=== PATIENT | female | born 1960 | race Caucasian/White ===

== ENCOUNTER 2024-01-19 06:27 | Day surgery (SDC) | payer BC ==
[2024-01-09 16:27] LABS: Absolute Basophils 0.1 K/uL (0-0.5); Absolute Eosinophils 0.2 K/uL (0-0.5); Absolute Lymphocytes (CBC) 2.2 K/uL (0.7-4.9); Absolute Monocytes 0.7 K/uL (0.1-1.3); Absolute Neutrophil 4.4 K/uL (1.8-8.0); Basophils % 0.9 % (0-1.3); Eosinophils % 2.1 % (0-4.4); Hematocrit 39.3 % (36.0-45.0); Hemoglobin 13.4 g/dL (12.0-15.0); Lymphocytes % 28.8 % (15.3-44.8); MCH 29.5 pg (27.0-35.0); MCV 86.9 fL (80-100); MPV 8.1 fL (7.6-11.3); Monocytes % 9.6 % (3.3-12.3); Neutrophils % 58.6 % (41.7-73.7); Nucleated Red Blood Cells % 0.1 % (0-0); Platelets 276 thou/uL (152-406); RBC Red Blood Cell Count 4.53 M/uL (3.86-4.86)
[2024-01-19] MEDS ORDERED: Ringers Lactate 1,000 ML IV ONE (06:46)
[2024-01-19] MEDS ORDERED: dexAMETHasone 10 MG/ML VIAL ONE (07:11)
[2024-01-19] MEDS ORDERED: propofoL 200 MG/20 ML VIAL IV ONE (07:11)
[2024-01-19] MEDS ORDERED: KETOROLAC 30 MG/ML INJ ONE (07:11)
[2024-01-19] MEDS ORDERED: ONDANSETRON 4 MG/2 ML VIAL ONE (07:11)
[2024-01-19] MEDS ORDERED: ROCURONIUM 50 MG/5 ML VIAL IV ONE (07:12)
[2024-01-19] MEDS ORDERED: LIDOCAINE 2% MPF 5 ML VIAL ONE (07:12)
[2024-01-19] MEDS ORDERED: FENTANYL CITR 100 MCG/2 ML ONE (07:12)
[2024-01-19] MEDS ORDERED: MIDAZOLAM HCL 2 MG/2 ML INJ ONE (07:12)
[2024-01-19] MEDS: CEFAZOLIN SODIUM 1 GM/VIAL ONE ×2 (07:27)
[2024-01-19] MEDS ORDERED: NS 0.9% VIAL 20 ML ONE (07:52)
[2024-01-19] MEDS: LIDOCAINE HCL/EPINEPHRINE 20 ML MDV ONE (07:55)
[2024-01-19] MEDS ORDERED: NS 0.9% VIAL 10 ML ONE (08:05)
[2024-01-19] MEDS ORDERED: Mastisol Adhesive Liq ONE (08:15)
[2024-01-19] MEDS ORDERED: GLYCOPYRROLATE 0.2 MG/ML SYR ONE (08:16)
[2024-01-19] MEDS ORDERED: NEOSTIGMINE 1 MG/ML -10 ML VIAL ONE (08:16)
[2024-01-19] MEDS ORDERED: LIDOCAINE HCL JELLY 2% 6 ML SYRINGE TOP ONE (08:16)
[2024-01-19] MEDS: Ringers Lactate 1,000 ML IV ONE (08:30)
[2024-01-19 09:01] VITALS: O2SAT 96
[2024-01-19] MEDS: ACETAMINOPHEN 325 MG TABLET ONE (09:29)
[2024-01-19 10:34] VITALS: BP 105/52; TEMP 97.6
--- NOTE | 2024-01-19 18:48 | OP ---
Date of Procedure: 01/19/2024 Surgeon: Carol Harris MD Preoperative Diagnosis: Refractory urge urinary incontinence and voiding dysfunction without improve ment on the neurostimulator. Postoperative Diagnosis: Refractory urge urinary incontinence and voiding dysfunction without improv ement on the neurostimulator. Procedures Performed: Removal of neurostimulator from the left buttock and removal of the left S3 le ad. Anesthesia: General endotracheal. Specimens: None. Complications: None. Drains: None. Condition: Patient's condition stable. Findings: Left S3 lead was removed completely and the implant was removed intact and they were both discarded. The wounds were closed in layers both at the lead site as well as the neurostimulator sit e. Indication: The patient is a 63-year-old who had voiding dysfunction and urinary incontinence. She underwent a trial with the office percutaneous nerve evaluation with satisfactory results and improve ment in incontinence symptoms with a slight possible improvement in her voiding dysfunction. So she was brought in for an InterStim full stage implant. There was a possibility that this could not work as the results for improvement in voiding dysfunction were equivocal. So when the implant was place d, the patient had minimal improvement in her urgency. However, the voiding dysfunction had not impr gilson and patient had to continue doing intermittent self-catheterizations 2 times a day and this has been the case immediately postop where the neurostimulator had to be shut off in order for her to voi d, but later the postvoid residuals continued to be high without a significant improvement and urgenc y symptoms. After adjusting multiple settings, finally we decided to offer her the removal of the im plant versus seeing a neuro-urologist and referral. Patient preferred to have the implant removed fi rst and so she was consented and brought in. Description Of Procedure: After informed consent was re-verified in the preoperative area, she was t aken back to the OR, and general endotracheal anesthesia was given, and then she was placed in a pron e position by the OR protocol. The back was prepped with Betadine and draped in a sterile fashion. Incision was made over the old neurostimulator site after injecting with 1% lidocaine mixed with epin ephrine 10 mL, 15 blade for the incision and dissection carried down to the level of the pocket site and the pocket was opened sharply. The neurostimulator was removed. The lead was cut without undoin g the screw and the neurostimulator was handed out. The skin was injected with 1% lidocaine infiltration at the left S3 site and a vertical incision was made about a centimeter. Dissection was carried down to the level of the lead. Once the lead was re leased and it was pulled out from here, then dissection was carried down to the bone to expose the fi rst marvel. Once the marvel was well exposed and I was able to grasp this with the tip of the hemostats, gentle pressure with slight rocking motion from [id number] was used to start pulling the lead back and the entire lead was gently with the constant traction removed intact without any problems. The bleeding was minimal and once the lead was handed out, the subcutaneous tissue was closed with the he lp of a 3-0 Vicryl suture interrupted and continuous running 4-0 Monocryl on the skin. At the implan tation site, irrigation was done as well and suction and the deeper pocket closed with the continuous running 3-0 Vicryl and the second layer of the subcutaneous tissues with the same suture, then subcu ticular sutures on the skin to close with 4-0 Monocryl. Steri-Strips and bandages were placed. Inst ruments and sponge counts were correct at the end of the case. EBL was less than 10 mL. The patient was flipped back into a supine position and extubated and brought to the PACU in a stable condition. She will follow up in the office in a week for incision check and then referred over for her voiding dysfunction management. FELICITA/GLADYS Voice ID: [id number] Report ID: [id number]
== END 2024-01-19 10:08 | disposition home or self-care (01) ==
LOC: OR 06:27
PROVIDERS: ATTEND Obstetrics & Gynecology
PROC: 0JPT0MZ Removal of Stimulator Generator from Trunk Subcutaneous Tissue and Fascia, Open Approach (ICD-10-PCS; 2024-01-19)
PROC: 01PY0MZ Removal of Neurostimulator Lead from Peripheral Nerve, Open Approach (ICD-10-PCS; principal; 2024-01-19 07:30)
DX: N39.41 Urge incontinence (principal); R39.14 Feeling of incomplete bladder emptying; N39.490 Overflow incontinence; E11.9 Type 2 diabetes mellitus without complications; E78.00 Pure hypercholesterolemia, unspecified; I10 Essential (primary) hypertension; J45.909 Unspecified asthma, uncomplicated
CPT/HCPCS: 85025; 80048; 36415; 64585; A4216 ×2; J2704; J2710; J2003; J2250; J3010; J1100; J2405; J7120 ×2; J0690 ×2